=== PATIENT | female | born 1980 | race Caucasian/White ===

== ENCOUNTER → 2016-03-18 | Outpatient (CLI) | payer BC ==
--- NOTE | 2016-03-18 10:16 | MR ---
EXAMINATION TYPE: MR knee LT wo con DATE OF EXAM: 03/18/2016 10:03 AM COMPARISON: NONE HISTORY: Left knee pain TECHNIQUE: Multiplanar, multisequence imaging of the left knee is performed without IV contrast. FINDINGS: MEDIAL MENISCUS: There is a linear tear through the posterior horn and body of the medial meniscus. LATERAL MENISCUS: Anterior and posterior horns are intact without tear. CRUCIATE LIGAMENTS: The anterior and posterior cruciate ligaments are intact and unremarkable. COLLATERAL LIGAMENTS: The medial collateral ligament and lateral collateral ligament complex are inta ct and unremarkable. EXTENSOR MECHANISM: Visualized quadriceps and patellar tendons are intact. EFFUSION: No significant suprapatellar joint effusion. POPLITEAL CYST: No popliteal/currie cyst. TRICOMPARTMENT SPACES: Hypertrophic spur along the upper margin of the patella. CARTILAGE: Cartilage appears preserved. BONE MARROW SIGNAL: No focal abnormal marrow signal is appreciated. OTHER: No additional significant abnormality is appreciated. IMPRESSION: Posterior horn medial meniscal tear.
== END | disposition home or self-care (01) ==
LOC: MERGE 09:06 → RADMRIMAIN 09:06
PROVIDERS: ATTEND Orthopaedic Surgery
DX: S83.242A Other tear of medial meniscus, current injury, left knee, initial encounter (principal)